=== PATIENT | female | born 1980 | race African-American/Black ===

== ENCOUNTER 2017-07-07 13:12 | Emergency (ER) | payer BC ==
[2017-07-07] MEDS ORDERED: Sodium Chloride 0.9% 10 ML Syringe FLUSH PRN (14:01)
[2017-07-07] MEDS ORDERED: Sodium Chloride 0.9% 1,000 ML IV SCH (14:15)
--- NOTE | 2017-07-07 15:17 | CT ---
Head CT Technique: Multiple axial sections through the brain were obtained. Intravenous contrast was not utilized. Comparison: No previous intracranial imaging. Findings: Ventricles along with basal cisterns and sulci over the convexities are within normal limits for the patient's age. No abnormal parenchymal densities are seen. No evidence of intracranial hemorrhage. No midline shift or mass effect is seen. Bone window settings were reviewed which shows no acute calvarial abnormality. Visualized sinuses are clear. Impression: 1. Nothing acute is seen on noncontrast head CT exam. Diagnostic code #1
[2017-07-07] MEDS ORDERED: HYDROmorphone 0.5 MG/0.5 ML SYRINGE IVPUSH ONE (17:18)
--- NOTE | 2017-07-07 18:41 | PCM.PREANE ---
Preanesthetic Assessment - Procedure Proposed Procedure: Spinal Tap - Anesthesia/Transfusion/Family Hx Anesthesia History: Prior Anesthesia Without Reaction Family History of Anesthesia Reaction: No Transfusion History: No Prior Transfusion(s) - Review of Systems General: Fatigue Pulmonary: Shortness of Breath Cardiovascular: No Symptoms Gastrointestinal: No Symptoms Neurological: No Symptoms Other: Reports: None - Physical Assessment Pulse: 69 O2 Sat by Pulse Oximetry: 100 Respiratory Rate: 13 Blood Pressure: 119/80 Temperature: 36.9 C Vital Signs: Last Vital Signs Temp 36.9 C 07/07/17 13:34 Pulse 69 07/07/17 13:34 Resp 13 07/07/17 13:34 BP 119/80 07/07/17 13:34 Pulse Ox 100 07/07/17 13:34 Height: 1.68 m Weight: 58.967 kg ASA Class: 2 Mental Status: Alert & Oriented x3 Airway Class: Mallampati = 1 Dentition: Reports: Normal Dentition Thyro-Mental Finger Breadths: 3 Mouth Opening Finger Breadths: 3 ROM/Head Extension: Limited/Partial Lungs: Decreased Breath Sounds Cardiovascular: Regular Rate, Regular Rhythm - Lab Values: Laboratory Last Values WBC 4.95 K/mm3 (3.98-10.04) 07/07/17 15:25 RBC 3.79 M/mm3 (3.98-5.22) L 07/07/17 15:25 Hgb 11.8 gm/L (11.2-15.7) 07/07/17 15:25 Hct 35.5 % (34.1-44.9) 07/07/17 15:25 MCV 93.7 fl (79.4-94.8) 07/07/17 15:25 MCH 31.1 pg (25.6-32.2) 07/07/17 15:25 MCHC 33.2 g/dl (32.2-35.5) 07/07/17 15:25 RDW Std Deviation 39.8 fL (36.4-46.3) 07/07/17 15:25 Plt Count 251 K/mm3 (182-369) 07/07/17 15:25 MPV 9.9 fl (9.4-12.3) 07/07/17 15:25 Neut % (Auto) 59.0 % (34.0-71.1) 07/07/17 15:25 Lymph % (Auto) 26.5 % (19.3-51.7) 07/07/17 15:25 [place] % (Auto) 12.5 % (4.7-12.5) 07/07/17 15:25 Eos % (Auto) 1.6 (0.7-5.8) 07/07/17 15:25 Baso % (Auto) 0.2 % (0.1-1.2) 07/07/17 15:25 Neut # (Auto) 2.92 K/mm3 (1.56-6.13) 07/07/17 15:25 Lymph # (Auto) 1.31 K/mm3 (1.18-3.74) 07/07/17 15:25 [place] # (Auto) 0.62 K/mm3 (0.24-0.36) H 07/07/17 15:25 Eos # (Auto) 0.08 K/mm3 (0.04-0.36) 07/07/17 15:25 Baso # (Auto) 0.01 K/mm3 (0.01-0.08) 07/07/17 15:25 Sodium 140 mEq/L (136-145) 07/07/17 15:25 Potassium 3.7 mEq/L (3.5-5.1) 07/07/17 15:25 Chloride 104 mEq/L (98-107) 07/07/17 15:25 Carbon Dioxide 26 mEq/L (21-32) 07/07/17 15:25 Anion Gap 13.7 (5-15) 07/07/17 15:25 BUN 13 mg/dL (7-18) 07/07/17 15:25 Creatinine 0.9 mg/dL (0.55-1.02) 07/07/17 15:25 Est Cr Clr Drug Dosing 78.90 mL/min 07/07/17 15:25 Estimated GFR (MDRD) > 60 mL/min (>60) 07/07/17 15:25 BUN/Creatinine Ratio 14.4 (14-18) 07/07/17 15:25 Glucose 84 mg/dL (74-106) 07/07/17 15:25 Calcium 9.0 mg/dL (8.5-10.1) 07/07/17 15:25 Total Bilirubin 0.8 mg/dL (0.2-1.0) 07/07/17 15:25 AST 23 U/L (15-37) 07/07/17 15:25 ALT 18 U/L (14-59) 07/07/17 15:25 Alkaline Phosphatase 83 U/L (46-116) 07/07/17 15:25 C-Reactive Protein 0.3 mg/dL (<1.0) 07/07/17 15:25 Total Protein 8.3 g/dl (6.4-8.2) H 07/07/17 15:25 Albumin 3.7 g/dl (3.4-5.0) 07/07/17 15:25 Globulin 4.6 gm/dL 07/07/17 15:25 Albumin/Globulin Ratio 0.8 (1-2) L 07/07/17 15:25 - Allergies Allergies/Adverse Reactions: Allergies Allergy/AdvReac Type Severity Reaction Status Date / Time latex Allergy Rash Verified 07/07/17 13:46 quinine Allergy Rash Verified 07/07/17 13:47 - Acknowledgements Pt an Appropriate Candidate for the Planned Anesthesia: Yes Alternatives and Risks of Anesthesia Discussed w Pt/Guardian: Yes Pt/Guardian Understands and Agrees with Anesthesia Plan: Yes 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: Immunologic History: Reports: HIV - SUBSTANCE USE Smoking Status *Q: Never Smoker Second Hand Smoke Exposure: No Recreational Drug Use History: No - HOME MEDS Home Medications: Home Meds Cyclobenzaprine [Flexeril] 10 mg PO ASDIRECTED 07/07/17 [History] - CURRENT (IN HOUSE) MEDS Current Meds: Current Medications Sodium Chloride (Normal Saline) 1,000 mls @ 125 mls/hr IV ASDIRECTED DONNIE Last Admin: 07/07/17 14:51 Dose: 125 mls/hr Sodium Chloride (Saline Flush) 10 ml FLUSH ASDIRECTED PRN PRN Reason: Keep Vein Open Last Admin: 07/07/17 14:50 Dose: 10 ml Discontinued Medications Hydromorphone HCl (Dilaudid) 0.5 mg IVPUSH ONETIME ONE Stop: 07/07/17 17:19
--- NOTE | 2017-07-07 19:27 | PCM.SN ---
- Free Text/Narrative Note: 1830 in room assess for lumbar puncture collection of CSF fluid. Assessment, consent, wash hands, mask, gown, glove, time out @ 1855 sterile technique, wash back beta dine X 3 local 1% at L2-3 25ga. pencan with introducer, collect 4 vials CSF 1.5-2.5 ml each vial bandage to back report off to Demetrius CARTER and Dr. Ureña out of room at 1919.
--- NOTE | 2017-07-07 20:29 | EDM.PDOC ---
ED HPI GENERAL MEDICAL PROBLEM - General Chief Complaint: Neck Problem Stated Complaint: NECK PAIN-SENT FROM [facility] Time Seen by Provider: 07/07/17 13:36 Source of Information: Reports: Patient History Limitations: Reports: Language Barrier - History of Present Illness INITIAL COMMENTS - FREE TEXT/NARRATIVE: The patient was sent from [place] [facility] for a headache and neck pain. This started about 10 days ago. She denies any injury. She had a low grade temp this morning. They were worried at [facility] that she may have meningitis and sent her over for a lumbar puncture. She has no vision changes. She has no chest pain, shortness of breath, abdominal pain, nausea, vomiting, numbness or weakness. She is HIV positive and she is on medication for that. She has not had trouble in awhile. She speaks Wolof but her and son can speak Cuban. Influenza was negative at the clinic. Onset: Gradual Duration: Day(s): (10) Location: Reports: Head, Neck Quality: Reports: Sharp Severity: Moderate Improves with: Reports: Immobilization Worsens with: Reports: Movement Associated Symptoms: Reports: Fever/Chills. 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: Immunologic History: Reports: HIV Social & Family History - Tobacco Use Smoking Status *Q: Never Smoker Second Hand Smoke Exposure: No - Caffeine Use Caffeine Use: Reports: None - Recreational Drug Use Recreational Drug Use: No ED ROS GENERAL - Review of Systems Review Of Systems: See Below Constitutional: Reports: Fever HEENT: Reports: No Symptoms Respiratory: Reports: No Symptoms Cardiovascular: Reports: No Symptoms Endocrine: Reports: No Symptoms GI/Abdominal: Reports: No Symptoms : Reports: No Symptoms Musculoskeletal: Reports: Neck Pain Skin: Reports: No Symptoms Neurological: Reports: Headache ED EXAM, UPPER BACK/NECK PAIN - Physical Exam Exam: See Below Exam Limited By: Language Barrier General Appearance: Alert, No Apparent Distress Ears Exam: Normal External Exam Nose Exam: Normal Inspection Throat/Mouth Exam: Normal Inspection Head Exam: Atraumatic, Normocephalic Neck Exam: Tenderness (Pain upon palpation and with movement forward and upward) Cardiovascular/Respiratory: Regular Rate, Rhythm, No M/R/G, Normal Peripheral Pulses, Normal Breath Sounds, No Respiratory Distress GI/Abdominal: Soft, Non-Tender, No Organomegaly, No Mass Back Exam: Normal Inspection Extremities: Normal Inspection Neurologic: No Motor/Sensory Deficits, Alert, Normal Mood/Affect, Oriented x 3 ED LUMBAR PUNCTURE - Lumbar Puncture Indication: Fever, Nuchal Rigidity, Headache Consent Obtained: Patient Position: Lateral Decubitus Prep: CDC/MBT Guidelines, Sterile Drapes, Betadine Local Anesthesia - Lidocaine (Xylocaine): 1% Plain Local Anesthetic Volume: 3cc Vertebral Interspace: L3/L4 Spinal Needle With Stylet: 22ga, 3.5 Inch (Adult) Number of Attempts: Other: (Unsuccessful with multiple attempts) Course - Vital Signs Last Recorded V/S: Last Vital Signs Temp 98.4 F 07/07/17 18:40 Pulse 69 07/07/17 18:40 Resp 13 07/07/17 18:40 BP 119/80 07/07/17 18:40 Pulse Ox 100 07/07/17 18:40 - Orders/Labs/Meds Orders: Active Orders 24 hr Category Date Time Status Cardiac Monitoring [RC] . DIRECTED Care 07/07/17 14:01 Active Flat in Bed [RC] ASDIRECTED Care 07/07/17 17:15 Active Peripheral IV Care [RC] . DIRECTED Care 07/07/17 14:02 Active Procedure Tray at Bedside [RC] ASDIRECTED Care 07/07/17 17:15 Active Verify Patient Consent Obtain [RC] ASDIRECTED Care 07/07/17 17:15 Active Chest 1V Frontal [CR] Stat Exams 07/07/17 14:02 Taken CELL COUNT,CSF [BF] Stat Lab 07/07/17 17:35 Results CULTURE CSF + SMEAR [RM] Stat Lab 07/07/17 17:35 Received Sodium Chloride 0.9% [Normal Saline] 1,000 ml Med 07/07/17 14:15 Active IV ASDIRECTED Sodium Chloride 0.9% [Saline Flush] Med 07/07/17 14:01 Active 10 ml FLUSH ASDIRECTED PRN ED Lumbar Puncture Reflex [OM.PC] Click To Edit Oth 07/07/17 17:15 Ordered Peripheral IV Insertion Adult [OM.PC] Stat Oth 07/07/17 14:01 Ordered Medication Orders Sodium Chloride (Normal Saline) 1,000 mls @ 125 mls/hr IV ASDIRECTED DONNIE Last Admin: 07/07/17 14:51 Dose: 125 mls/hr Sodium Chloride (Saline Flush) 10 ml FLUSH ASDIRECTED PRN PRN Reason: Keep Vein Open Last Admin: 07/07/17 14:50 Dose: 10 ml Labs: Laboratory Tests 07/07/17 07/07/17 07/07/17 Range/Units 15:25 15:25 17:35 WBC 4.95 (3.98-10.04) K/mm3 RBC 3.79 L (3.98-5.22) M/mm3 Hgb 11.8 (11.2-15.7) gm/L Hct 35.5 (34.1-44.9) % MCV 93.7 (79.4-94.8) fl MCH 31.1 (25.6-32.2) pg MCHC 33.2 (32.2-35.5) g/dl RDW Std Deviation 39.8 (36.4-46.3) fL Plt Count 251 (182-369) K/mm3 MPV 9.9 (9.4-12.3) fl Neut % (Auto) 59.0 (34.0-71.1) % Lymph % (Auto) 26.5 (19.3-51.7) % [place] % (Auto) 12.5 (4.7-12.5) % Eos % (Auto) 1.6 (0.7-5.8) Baso % (Auto) 0.2 (0.1-1.2) % Neut # (Auto) 2.92 (1.56-6.13) K/mm3 Lymph # (Auto) 1.31 (1.18-3.74) K/mm3 [place] # (Auto) 0.62 H (0.24-0.36) K/mm3 Eos # (Auto) 0.08 (0.04-0.36) K/mm3 Baso # (Auto) 0.01 (0.01-0.08) K/mm3 Sodium 140 (136-145) mEq/L Potassium 3.7 (3.5-5.1) mEq/L Chloride 104 (98-107) mEq/L Carbon Dioxide 26 (21-32) mEq/L Anion Gap 13.7 (5-15) BUN 13 (7-18) mg/dL Creatinine 0.9 (0.55-1.02) mg/dL Est Cr Clr Drug Dosing 78.90 mL/min Estimated GFR (MDRD) > 60 (>60) mL/min BUN/Creatinine Ratio 14.4 (14-18) Glucose 84 (74-106) mg/dL Calcium 9.0 (8.5-10.1) mg/dL Total Bilirubin 0.8 (0.2-1.0) mg/dL AST 23 (15-37) U/L ALT 18 (14-59) U/L Alkaline Phosphatase 83 (46-116) U/L C-Reactive Protein 0.3 (<1.0) mg/dL Total Protein 8.3 H (6.4-8.2) g/dl Albumin 3.7 (3.4-5.0) g/dl Globulin 4.6 gm/dL Albumin/Globulin Ratio 0.8 L (1-2) CSF Tube Number 1 CSF Volume 6 ml CSF Appearance Clear (CLEAR) CSF Color Colorless CSF Supernatant Appear No xanthochromia CSF WBC 0.003 (0.000-0.008) 10*3/uL CSF Glucose (40-70) mg/dl CSF Total Protein (15-45) mg/dl 07/07/17 Range/Units 17:35 WBC (3.98-10.04) K/mm3 RBC (3.98-5.22) M/mm3 Hgb (11.2-15.7) gm/L Hct (34.1-44.9) % MCV (79.4-94.8) fl MCH (25.6-32.2) pg MCHC (32.2-35.5) g/dl RDW Std Deviation (36.4-46.3) fL Plt Count (182-369) K/mm3 MPV (9.4-12.3) fl Neut % (Auto) (34.0-71.1) % Lymph % (Auto) (19.3-51.7) % [place] % (Auto) (4.7-12.5) % Eos % (Auto) (0.7-5.8) Baso % (Auto) (0.1-1.2) % Neut # (Auto) (1.56-6.13) K/mm3 Lymph # (Auto) (1.18-3.74) K/mm3 [place] # (Auto) (0.24-0.36) K/mm3 Eos # (Auto) (0.04-0.36) K/mm3 Baso # (Auto) (0.01-0.08) K/mm3 Sodium (136-145) mEq/L Potassium (3.5-5.1) mEq/L Chloride (98-107) mEq/L Carbon Dioxide (21-32) mEq/L Anion Gap (5-15) BUN (7-18) mg/dL Creatinine (0.55-1.02) mg/dL Est Cr Clr Drug Dosing mL/min Estimated GFR (MDRD) (>60) mL/min BUN/Creatinine Ratio (14-18) Glucose (74-106) mg/dL Calcium (8.5-10.1) mg/dL Total Bilirubin (0.2-1.0) mg/dL AST (15-37) U/L ALT (14-59) U/L Alkaline Phosphatase (46-116) U/L C-Reactive Protein (<1.0) mg/dL Total Protein (6.4-8.2) g/dl Albumin (3.4-5.0) g/dl Globulin gm/dL Albumin/Globulin Ratio (1-2) CSF Tube Number CSF Volume ml CSF Appearance (CLEAR) CSF Color CSF Supernatant Appear CSF WBC (0.000-0.008) 10*3/uL CSF Glucose 55.0 (40-70) mg/dl CSF Total Protein 49.8 H (15-45) mg/dl Meds: Medications Generic Name Dose Route Start Last Admin Trade Name Freq PRN Reason Stop Dose Admin Sodium Chloride 1,000 mls @ 125 mls/hr 07/07/17 14:15 07/07/17 14:51 Normal Saline IV 125 mls/hr ASDIRECTED DONNIE Administration Sodium Chloride 10 ml 07/07/17 14:01 07/07/17 14:50 Saline Flush FLUSH 10 ml ASDIRECTED PRN Administration Keep Vein Open Discontinued Medications Generic Name Dose Route Start Last Admin Trade Name Bonifacio PRN Reason Stop Dose Admin Hydromorphone HCl 0.5 mg 07/07/17 17:18 07/07/17 19:18 Dilaudid IVPUSH 07/07/17 17:19 0.5 mg ONETIME ONE Administration - Re-Assessments/Exams Free Text/Narrative Re-Assessment/Exam: 07/07/17 20:33 I ordered an IV NS, labs, CT of her head. I also ordered her some dilaudid for pain. 07/07/17 20:[address] of her head looks good. Her CBC was negative. Her CMP looks good. I was unsuccessful with my LP. Michael one of our CRNAs came to help and he got the sample. THe CSF was clear. There was no xanthrochromia. Her WBC was 0.003. The glucose was normal at 55. Her protein was a little elevated at 49.8. 07/07/17 20:36 The culture is pending. I did not think this is meningitis. I feel this is neck pain and tension headache. Departure - Departure Time of Disposition: 08:40 Disposition: Home, Self-Care 01 Condition: Good Clinical Impression: Neck pain Headache Qualifiers: Headache type: tension-type Headache chronicity pattern: acute headache Intractability: not intractable Qualified Code(s): G44.209 - Tension-type headache, unspecified, not intractable - Discharge Information Prescriptions: Hydrocodone/Acetaminophen [Hydrocodon-Acetaminophen 5-325] 1 - 2 each PO Q6HR PRN #20 tablet PRN Reason: Pain Cyclobenzaprine [Flexeril] 10 mg PO TID PRN #20 tab PRN Reason: Pain Referrals: Brie Murdock, UROLOGIC NURSE [Primary Care Provider] - 1 Week Additional Instructions: Take the hydrocodone and flexeril as needed for pain. Drink plenty of fluids. Please return if you are worse. Follow up with Brie in 1 week. - My Orders Last 24 Hours: My Active Orders 07/07/17 14:01 Cardiac Monitoring [RC] . DIRECTED Sodium Chloride 0.9% [Saline Flush] 10 ml FLUSH ASDIRECTED PRN Peripheral IV Insertion Adult [OM.PC] Stat 07/07/17 14:02 Peripheral IV Care [RC] . DIRECTED Chest 1V Frontal [CR] Stat 07/07/17 14:15 Sodium Chloride 0.9% [Normal Saline] 1,000 ml IV ASDIRECTED 07/07/17 17:15 Flat in Bed [RC] ASDIRECTED Procedure Tray at Bedside [RC] ASDIRECTED Verify Patient Consent Obtain [RC] ASDIRECTED ED Lumbar Puncture Reflex [OM.PC] Click To Edit 07/07/17 17:35 CELL COUNT,CSF [BF] Stat CULTURE CSF + SMEAR [RM] Stat - Assessment/Plan Last 24 Hours: My Active Orders 07/07/17 14:01 Cardiac Monitoring [RC] . DIRECTED Sodium Chloride 0.9% [Saline Flush] 10 ml FLUSH ASDIRECTED PRN Peripheral IV Insertion Adult [OM.PC] Stat 07/07/17 14:02 Peripheral IV Care [RC] . DIRECTED Chest 1V Frontal [CR] Stat 07/07/17 14:15 Sodium Chloride 0.9% [Normal Saline] 1,000 ml IV ASDIRECTED 07/07/17 17:15 Flat in Bed [RC] ASDIRECTED Procedure Tray at Bedside [RC] ASDIRECTED Verify Patient Consent Obtain [RC] ASDIRECTED ED Lumbar Puncture Reflex [OM.PC] Click To Edit 07/07/17 17:35 CELL COUNT,CSF [BF] Stat CULTURE CSF + SMEAR [RM] Stat
--- NOTE | 2017-07-10 10:06 | CR ---
Chest: Portable view of the chest was obtained. Comparison: No prior chest x-ray. Heart size and mediastinum are within normal limits for portable technique. Lungs are clear. Bony structures are grossly intact. Impression: 1. Nothing acute is identified on portable chest x-ray. Diagnostic code #1
== END 2017-07-07 20:55 | disposition home or self-care (01) ==
LOC: JD.ED 13:12
DX: G44.209 Tension-type headache, unspecified, not intractable (principal); B20 Human immunodeficiency virus [HIV] disease; Z88.5 Allergy status to narcotic agent; Z91.040 Latex allergy status
CPT/HCPCS: 36415; 62272; 70450; 71045; 80053; 82945; 84157; 85025; 86140; 87070; 87205; 89050; 96361; 96374; 99285; J1170; J7040; J7050; 62270; 99284-25

== ENCOUNTER 2024-06-23 08:22 | Emergency (ER) | payer BC ==
[2024-06-23] MEDS: Albuterol/Ipratropium 3.0-0.5 MG/3 ML Neb Soln NEB ONE (09:07)
[2024-06-23] MEDS: predniSONE 20 MG Tab PO ONE (09:17)
[2024-06-23 09:24] LABS: BASOPHILS PERCENT AUTO 0.4 % (0.0-1.0); EOSINOPHILS ABSOLUTE AUTO 0.1 K/mm3 (0.0-0.4); EOSINOPHILS PERCENT AUTO 1.8 % (0.0-6.0); HEMATOCRIT 36.6 % (37.0-47.0); HEMOGLOBIN 12.5 gm/dl (12.0-16.0); IMMATURE GRAN ABSOLUTE AUTO 0.02 K/mm3 (0.00-0.05); IMMATURE GRAN PERCENT AUTO 0.3 % (0.0-0.4); LYMPHOCYTES ABSOLUTE AUTO 1.8 K/mm3 (1.0-4.8); LYMPHOCYTES PERCENT AUTO 23.9 % (24.0-44.0); MEAN CORPUSCULAR HEMOGLOBIN 31.3 pg (28.0-32.0); MEAN CORPUSCULAR HGB CONC 34.2 g/dl (32.0-36.0); MEAN CORPUSCULAR VOLUME 91.7 fl (83.0-99.0); MEAN PLATELET VOLUME 9.7 fl (9.4-12.3); MONOCYTES ABSOLUTE AUTO 0.7 K/mm3 (0.0-0.8); MONOCYTES PERCENT AUTO 9.6 % (0.0-8.0); NEUTROPHILS ABSOLUTE AUTO 4.9 K/mm3 (1.8-7.7); PLATELET COUNT,PLT 234 K/mm3 (150-400); RED BLOOD CELL COUNT 3.99 M/mm3 (4.10-5.30); WHITE BLOOD CELL COUNT,WBC 7.63 K/mm3 (3.9-11.3)
[2024-06-23 09:50] LABS: ANION GAP 13.3 (5-15); BUN/CREATININE RATIO 14.5 (14-18); CALCIUM 9.4 mg/dL (8.5-10.1); CREATININE 1.1 mg/dL (0.55-1.02); EST CRCL DRUG DOSING (CG) 58.12 mL/min; POTASSIUM,K 3.3 mEq/L (3.5-5.1)
== END 2024-06-23 12:11 | disposition home or self-care (01) ==
LOC: JD.ED 08:22
DX: J45.909 Unspecified asthma, uncomplicated (principal); Z91.040 Latex allergy status; Z88.8 Allergy status to other drugs, medicaments and biological substances; Z79.51 Long term (current) use of inhaled steroids; Z21 Asymptomatic human immunodeficiency virus [HIV] infection status
CPT/HCPCS: 36415; 71045; 80048; 81025; 84484; 85025; 87428; 93005; 94640; 99285; J7512; 93010; 99284; J7620-GY

== ENCOUNTER 2024-11-18 17:14 | Emergency (ER) | payer BC ==
[2024-11-18] MEDS: Ondansetron 4 MG/2 ML SDV IVPUSH ONE (17:49)
[2024-11-18] MEDS: Ketorolac 30 MG/ML SDV IVPUSH ONE (17:53)
[2024-11-18 17:56] LABS: BASOPHILS ABSOLUTE AUTO 0.0 K/mm3 (0.0-0.2); BASOPHILS PERCENT AUTO 0.5 % (0.0-1.0); EOSINOPHILS ABSOLUTE AUTO 0.2 K/mm3 (0.0-0.4); EOSINOPHILS PERCENT AUTO 3.4 % (0.0-6.0); IMMATURE GRAN ABSOLUTE AUTO 0.01 K/mm3 (0.00-0.05); IMMATURE GRAN PERCENT AUTO 0.2 % (0.0-0.4); LYMPHOCYTES ABSOLUTE AUTO 1.6 K/mm3 (1.0-4.8); LYMPHOCYTES PERCENT AUTO 27.5 % (24.0-44.0); MEAN PLATELET VOLUME 9.9 fl (9.4-12.3); MONOCYTES ABSOLUTE AUTO 0.6 K/mm3 (0.0-0.8); MONOCYTES PERCENT AUTO 11.3 % (0.0-8.0); NEUTROPHILS ABSOLUTE AUTO 3.2 K/mm3 (1.8-7.7); NEUTROPHILS PERCENT AUTO 57.1 % (41.0-71.0); NRBC ABSOLUTE 0.00 (0.00-0.02); NRBC PERCENT 0.0 % (0.0-0.2); PLATELET COUNT,PLT 289 K/mm3 (150-400); RED BLOOD CELL COUNT 4.12 M/mm3 (4.10-5.30); WHITE BLOOD CELL COUNT,WBC 5.67 K/mm3 (3.9-11.3)
[2024-11-18] MEDS ORDERED: LORazepam 2 MG/ML SDV IVPUSH ONE (18:07)
[2024-11-18] MEDS: LORazepam 2 MG/ML SDV IVPUSH ONE (18:08)
[2024-11-18 18:17] LABS: INR 0.93
[2024-11-18 18:24] LABS: A/G RATIO 0.8 (1-2); ALANINE AMINOTRANSFERASE,ALT 27.0 U/L (14-59); ASPARTATE AMNIOTRANSFERASE,AST 31.0 U/L (15-37); BILIRUBIN TOTAL 0.4 mg/dL (0.2-1.0); BLOOD UREA NITROGEN,BUN 16.0 mg/dL (7-18); CARBON DIOXIDE,CO2 29.0 mEq/L (21-32); CHLORIDE,CL 102.0 mEq/L (98-107); CREATINE KINASE,CK 245.0 U/L (26-192); CREATININE 1.1 mg/dL (0.55-1.02); EST CRCL DRUG DOSING (CG) 59.82 mL/min; ESTIMATED GFR 63.0 mL/min (>60); GLUCOSE RANDOM 120.0 mg/dL (70-99); POTASSIUM,K 3.6 mEq/L (3.5-5.1); PROTEIN TOTAL,TP 8.9 g/dl (6.4-8.2); SODIUM,NA 140.0 mEq/L (136-145); TROPONIN I HIGH SENSITIVITY 6.0 pg/mL (<=51)
== END 2024-11-18 19:00 | disposition home or self-care (01) ==
LOC: JD.ED 17:14
DX: R07.2 Precordial pain (principal); F41.9 Anxiety disorder, unspecified; Z88.6 Allergy status to analgesic agent; Z88.8 Allergy status to other drugs, medicaments and biological substances; Z91.040 Latex allergy status; Z90.49 Acquired absence of other specified parts of digestive tract
CPT/HCPCS: 36415; 71045; 80053; 82550; 83690; 83735; 84484; 84703; 85025; 85610; 93005; 96374; 96375; 99285; A9270; J1885; J2060; J2405; J2470; J7030; 93010; 99284